=== PATIENT | male | born 1975 | race Caucasian/White ===

== ENCOUNTER → 2018-04-25 | Outpatient (CLI) | payer BC ==
--- NOTE | 2018-04-25 17:02 | PCVCIMAG ---
APPROVED REPORT Study performed: 04/25/2018 15:05:35 Exam: Stress Echocardiogram Indication: Dyspnea , Hypertension, obesity, HLP Patient Location: Echo lab Stress Nurse: Niru Bai RN Status: routine Ht: 6 ft 0 in HR: 90 bpm BP: 124/86 mmHg Rhythm: NSR Procedure The patient underwent an Exercise Stress Test using the Manas Protocol. Blood pressure, heart rate, and EKG were monitored. An Echocardiogram was performed by exercise equipment repair technician in four stages in quad fashion. At peak stress, four selected images were obtained and placed side by side with resting images for comparison. Stress Test Details Stress Test: Exercise stress testing was performed using a Manas protocol. HR Resting HR: 90 bpmMax Heart Rate (APMHR): 177 bpm Max HR Achieved: 157 bpmTarget HR (85% APMHR): 150 bpm % of APMHR: 88 Recovery HR: 116 bpm HR response to stress: Normal HR response to stress BP Resting BP: 124/86 mmHg Max BP: 160/76 mmHg Recovery BP: 138/80 mmHg BP response to stress: Normal blood pressure response to stress. ECG Resting ECG: Sinus Rhythm Stress ECG: Sinus Rhythm ST Change: Normal Maximum ST Deviation: 0 mm Arrhythmia: None Recovery ECG: Sinus Rhythm Recovery ST Change: Normal Recovery ST Deviation: 0 mm Recovery Arrhythmia: None Clinical Reason for Termination: Dyspnea, knee pain Stress Symptoms: Dyspnea Exercise duration: 7 min 10 sec Highest Stage Achieved: Stage 3: 3.4 mph at 14% grade. Exercise capacity: 10.1 METs Overall Exercise Capacity for Age: below average Scale: Sedentary Angina Score: None Stress ECG Conclusion Clinical: Non-ischemic ECG: Non-ischemic Elizabeth Treadmill Score is 7.0 which is Low risk. Pre-Stress Echo The resting Echocardiogram showed normal left ventricular contractility with an estimated Ejection Fraction of about >55%. Normal wall motion in all segments on baseline images. Post-Stress Echo The stress Echocardiogram showed normal left ventricular contractility with an estimated Ejection Fraction of about 65%. Normal augmentation of wall motion in all segments on post stress images. Clinical No clinical or ECG evidence for ischemia. Conclusion Clinical Response: Non-ischemic Exercise Capacity: Average Stress ECG Response: Non-ischemic Stress Echo Images: Non-ischemic The left ventricle is normal in size and wall thickness in both the rest and stress images. Normal stress echocardiogram with maximal exercise stress. Other Information Study Quality: Adequate <Conclusion> The left ventricle is normal in size and wall thickness in both the rest and stress images. Normal stress echocardiogram with maximal exercise stress.
== END | disposition home or self-care (01) ==
LOC: PCVCIMAG 15:34
PROVIDERS: ATTEND Internal Medicine
DX: I10 Essential (primary) hypertension (principal); R06.02 Shortness of breath; E78.5 Hyperlipidemia, unspecified; E66.9 Obesity, unspecified
CPT/HCPCS: 93325; 93351